=== PATIENT | male | born 1955 | race Caucasian/White ===

== ENCOUNTER 2017-04-16 20:25 | Inpatient (IN) | payer MEDICARE, OTHER ==
[2017-04-16] MEDS ORDERED: IPRATROPIUM/ALBUTEROL 3 ML VIAL NEB ONE ×4 (20:49→23:40)
[2017-04-16] MEDS ORDERED: SODIUM CHLORIDE 0.9% (FLUSH) 10 ML SYG IV PRN (20:59)
--- NOTE | 2017-04-16 21:08 | ED.PDOC ---
History of Present Illness - General Chief Complaint: Respiratory Problem Stated Complaint: increased heart rate, low sats Time Seen by Provider: 04/16/17 20:57 Source: RN/MD, snf records Exam Limitations: other - NON-COMMUNICATIVE AT BASELINE. - History of Present Illness Initial Comments: [facility] TO GET MORE INFORMATION. HE IS A NEW PT THERE SO THEY HAD LIMITED INFORMATION. [facility] INFORMED US HIS SATS WERE DECREASING AND HE HAS INCREASED WOB, THUS THEY CHANGED OUT HIS TRACHEOSTOMY WHICH DIDN'T HELP. THE [facility] NURSE WASN'T SURE WHY HE HAS AN INDWELLING TRACH. UNCERTAIN IF HE IS ON 2L AT BASELINE, BUT [facility] STATES HIS 02 SATS WERE WORSENING FROM BASELINE (HE IS CURRENTLY ON 4L IN ER, SATS 89%). PER [facility], HE IS IN CHRONIC VEGETATIVE/NONCOMMUNICATIVE STATE SINCE A PREVIOUS CODE /CPR; SO THIS IS NOT A CHANGE FROM BASELINE TONIGHT. H/O HTN AND DM PER MED LIST, WELL RESPIRATORY MEDS WITH HIS TRACH. NOTE: FAMILY REQUESTS THAT IF HE NEEDS TO BE TRANSFERRED, THEY PREFER HIM TO GO TO [place] OR [facility] INSTEAD OF [place]. Severity: moderate Activities at Onset: rest Possible Cause: unknown cause Improving Factors: nothing Worsening Factors: nothing Associated Symptoms: fever Respiratory Risk Factors: no cause identified Allergies/Adverse Reactions: Allergies NO KNOWN ALLERGY Allergy (Verified 04/16/17 20:45) Home Medications: Ambulatory Orders Amlodipine Besylate 10 mg PO DAILY 04/16/17 Budesonide (Inhalation) [Budesonide] 0.5 mg IN BID PRN 04/16/17 Collagenase [Santyl] 250 unit EX BID 04/16/17 Dextran 70/Dextrose [Hyskon] 1 jayne BOTH_EYES Q12H 04/16/17 Enoxaparin Sodium [Lovenox] 40 mg SUBCU QD 04/16/17 Famotidine 10 mg PO BID 04/16/17 Insulin Aspart [Novolog] 4 unit SC Q6H 04/16/17 Insulin Detemir [Levemir] 10 unit SUBCU Q12H 04/16/17 Ipratropium/Albuterol [Duoneb] 3 ml INH Q6H PRN 04/16/17 Lactobacillus [Acidophilus] 1 cap GT BID 04/16/17 Levalbuterol HCl [Xopenex] 1.25 mg IN Q6H 04/16/17 Levothyroxine Sodium 100 mcg GT DAILY 04/16/17 Whitehouse-3 Fatty Acids [Whitehouse-3 Fish Oil 1000 mg] 3 cap PO DAILY 04/16/17 Vancomycin HCl [Vancocin HCl] 250 mg GT Q8H 04/16/17 Review of Systems - Review of Systems Unable to Obtain Due To: other - PER NH, IS CHRONICALLY IN A VEGETATIVE STATE AND IS NON-COMMUNICATIVE. Past Medical History (General) - Patient Medical History Hx of COPD: Yes Hx Hypertension: Yes Hx Diabetes: Yes - IDDM Hx Gastroesophageal Reflux: Yes - Vaccination History Hx Tetanus, Diphtheria Vaccination: - unk Hx Influenza Vaccination: - unk Hx Pneumococcal Vaccination: - unk - Social History Hx Tobacco Use: No - Activities of Daily Living Fdc/Assisted Living (if applicable):: [facility] - Female History Patient is a Female of Child Bearing Age (10 -59 yrs old): No Patient : No Family Medical History - Family History Father Family History: Unknown Physical Exam - Physical Exam General Appearance: Obese, Well Nourished Eyes, Ears, Nose, Throat Exam: PERRL/EOMI, normal ENT inspection, TMs normal Neck: non-tender, supple Respiratory: respiratory distress, crackles, rhonchi, expiration, inspiration Cardiovascular/Chest: no edema, no gallop, no JVD, no murmur Peripheral Pulses: radial,right: 1+, radial,left: 1+ Gastrointestinal/Abdominal: normal bowel sounds, non tender, soft Extremity: normal inspection, no pedal edema Neurologic: other - HE IS UNRESPONSIVE TO QUESTIONS AND KEEPS BUE AND BLE IN DECEREBRATE (FLEXED) POSITION. HE OPENS EYES SPONTANEOUSLY BUT DOES NOT FOLLOW WITH EYES. Skin Exam: diaphoresis Lymphatic: no adenopathy Progress - Results/Orders Results/Orders: CXR = PLEURAL EFFUSION (CHF) BNP 279, JUST SLIGHTLY ELEVATED. CHF - UNABLE TO GIVE LASIX DUE TO HYPOTENSION. CBC = WBC 28. NEUTS ELEVATED. UA = UTI (WBC, POS LEUK EST, BACTERIA). PROTEINURIA, MICRO HEMATURIA. D-DIMER 2,950; HYPOTENSION, ACUTE HYPOXIA, THUS ORDERING CTA TO ENSURE NO P.E., THOUGH HE IS ALREADY ON LOVENOX. 23:04 UPDATE: RADIOLOGY INFORMED ME WE ARE UNABLE TO DO CTA TO EVAL FOR P.E. SINCE PT'S BUE ARE CHRONICALLY IN RIGID FLEXED POSITION (UNABLE TO PLACE IV FOR THE DYE), AND THEY INFORMED ME IV IN FOREARM OR IN LEGS DOES NOT PROVIDE SUFFICENT VIEW FOR CTA. P.E. IS LESS LIKELY SINCE HIS 02 SATES INCREASED FROM 87 UP TO 97% IN ER ON SAME Fi02 AND SINCE HE IS ALREADY ON LOVENOX. SEPSIS - POSITIVE SIRS CRITERIA (TACHYCARDIA, ELEV WBC, HYPOXIA) PLUS INFECTIOUS SOURCE OF UTI AND HEALTHCARE-ASSOCIATED PNE (INTERMEDIATE PT), THUS GAVE 1ST DOSE OF MEROPENEM, WHICH COVERS FOR BOTH UTI AND PNE. ACUTE HYPOTENSION - 107/63. UNABLE TO GIVE IVF D/T CHF FLUID OVERLOADED. MAP IS 78. I WILL KEEP AN EYE ON IT AND IF MAP OR BP DROPS, I WILL CONSIDER PRESSORS TO TX SINCE CANNOT GIVE IVF WITH HIS CHF/PLEURAL EFFUSION. 23:00 UPDATE: BP NOW IMPROVED TO 107/87 (map 92) ACUTE HYPOXIA - O2 SATS IMPROVING FROM 87% ON ER ARRIVAL ON 4L, UP TO 97% ON 4L. CMP UNREMARKABLE EXCEPT Na 133. EKG = SINUS TACHY WNL/NEG: LACTIC ACID, CARDIAC ENZ. BCX AND SPUTUM CX PENDING. I SPOKE WITH CARLOS LEHMAN APRN HOSPITALIST, WHO ACCEPTED ADMISSION AND FURTHER CARE OF THE PT. THANK YOU, CARLOS AND [facility]. - EKG/XRAY/CT EKG: Sinus, Tachy, no ST T wave changes Departure - Departure Clinical Impression: Fever, Acute respiratory failure with hypoxia, Sinus tachycardia by electrocardiogram, Pleural effusion due to CHF (congestive heart failure), Neutrophilic leukocytosis, Sepsis, UTI (urinary tract infection), Proteinuria, Microscopic hematuria, Hypotension, Hypoxia, custodial-acquired pneumonia, Hyponatremia, Chronic brain damage Disposition: Admit Patient Condition: Fair Departure Forms: Patient Portal Self Enrollment, ED Discharge - Pt. Copy Referrals: JAYDON THURSTON [Primary Care Provider] - 1-2 Weeks Home Medications: Ambulatory Orders Amlodipine Besylate 10 mg PO DAILY 04/16/17 Budesonide (Inhalation) [Budesonide] 0.5 mg IN BID PRN 04/16/17 Collagenase [Santyl] 250 unit EX BID 04/16/17 Dextran 70/Dextrose [Hyskon] 1 jayne BOTH_EYES Q12H 04/16/17 Enoxaparin Sodium [Lovenox] 40 mg SUBCU QD 04/16/17 Famotidine 10 mg PO BID 04/16/17 Insulin Aspart [Novolog] 4 unit SC Q6H 04/16/17 Insulin Detemir [Levemir] 10 unit SUBCU Q12H 04/16/17 Ipratropium/Albuterol [Duoneb] 3 ml INH Q6H PRN 04/16/17 Lactobacillus [Acidophilus] 1 cap GT BID 04/16/17 Levalbuterol HCl [Xopenex] 1.25 mg IN Q6H 04/16/17 Levothyroxine Sodium 100 mcg GT DAILY 04/16/17 Whitehouse-3 Fatty Acids [Whitehouse-3 Fish Oil 1000 mg] 3 cap PO DAILY 04/16/17 Vancomycin HCl [Vancocin HCl] 250 mg GT Q8H 04/16/17 Decision To Admit - Decistion To Admit Decision to Admit Reason: Admit from ER
--- NOTE | 2017-04-16 21:11 | RAD ---
PROCEDURE: XR CHEST 1 VIEW HISTORY: difficulty breathing, low O2 sats COMPARISON: None TECHNIQUE: Single projection of the chest was done. FINDINGS: There is presence of a tracheostomy. There is small right-sided pleural thickening/pleural effusion and presence of mild asymmetric right-sided vascular congestion, suspicious for underlying changes of mild volume overload The patient is rotated to the right side . There is no pneumothorax The cardiomediastinal silhouette is stable. IMPRESSION: There is small right-sided pleural thickening/pleural effusion and presence of mild asymmetric right-sided vascular congestion, suspicious for underlying changes of mild volume overload Electronically signed by: Octavio Barksdale MD 04/16/2017 9:10 PM CDT Workstation: [id number]
[2017-04-16] MEDS ORDERED: MEROPENEM 1 GM in SODIUM CHL 0.9% 50ML MIN-BAG+ 50 ML IVPB ONE (22:02)
[2017-04-16] MEDS ORDERED: MEROPENEM 1 GM VIAL IVPB ONE (22:31)
[2017-04-16] MEDS ORDERED: SODIUM CHL 0.9% 50ML MIN-BAG+ 50 ML IVPB ONE (22:31)
[2017-04-16] MEDS ORDERED: SODIUM CHLORIDE 0.9% 10 ML VIAL ONE (22:52)
[2017-04-17] MEDS ORDERED: ONDANSETRON INJ 4 MG/2 ML VIAL IV PRN (00:42)
[2017-04-17] MEDS ORDERED: MORPHINE SULFATE INJ 10 MG/ML VIAL IV PRN (00:42)
[2017-04-17] MEDS ORDERED: SODIUM CHLORIDE 0.9% (FLUSH) 10 ML SYG IV PRN (00:42)
[2017-04-17] MEDS ORDERED: SODIUM CHLORIDE 0.9% 1000ML 1,000 ML IVS PRN ×2 (00:57→10:11)
[2017-04-17] MEDS ORDERED: IPRATROPIUM/ALBUTEROL 3 ML VIAL INH SCH (01:00)
[2017-04-17] MEDS ORDERED: IV SET AND CAP CHANGE INJ INJ SCH (01:00)
[2017-04-17] MEDS ORDERED: DEXTROSE 50% 25 GM/50 ML SYG IV PRN (01:07)
[2017-04-17] MEDS ORDERED: GLUCAGON INJ 1 MG VIAL SUBCU PRN (01:07)
[2017-04-17] MEDS ORDERED: DEX 5% W/NACL 0.9% 1000ML 1,000 ML IVS ONE (02:00)
--- NOTE | 2017-04-17 05:40 | RAD ---
EXAM: Single view chest. INDICATION: Pneumonia. COMPARISON: Chest x-ray: 04/16/2017. FINDINGS: There is right basilar airspace opacity with right pleural effusion. The left lung is clear. Heart size is stable. There is no pneumothorax. The tracheostomy tube is in satisfactory position. A left PICC terminates near the left axillary region. IMPRESSION: Right basilar airspace opacity with right pleural effusion Electronically signed by: Karthik High MD 04/17/2017 5:39 AM CDT Workstation: [id number]
[2017-04-17] MEDS: ALBUTEROL SULFATE 2.5 MG/3 ML VIAL NEB PRN (05:50)
[2017-04-17] MEDS ORDERED: INSULIN LISPRO 100 UNITS/ML PEN SUBCU SCH (06:00)
[2017-04-17] MEDS ORDERED: MEROPENEM 1 GM in SODIUM CHL 0.9% 50ML MIN-BAG+ 50 ML IVPB SCH ×2 (06:00→09:00)
[2017-04-17] MEDS ORDERED: NOREPINEPHRINE BITARTRATE 4 MG in DEXTROSE 5% 250ML 250 ML IVPB ONE (06:30)
[2017-04-17] MEDS ORDERED: PANTOPRAZOLE SODIUM IV 40 MG VIAL IV SCH (06:30)
--- NOTE | 2017-04-17 06:32 | RAD ---
EXAM: Single view chest. INDICATION: Respiratory distress. COMPARISON: Chest x-ray: 04/17/2017. FINDINGS: There is a right basilar airspace opacity with right pleural effusion. The left lung is clear. The heart size is stable. There is no pneumothorax. A tracheostomy tube is in place IMPRESSION: Right basilar airspace opacity with right pleural effusion Electronically signed by: Karthik High MD 04/17/2017 6:31 AM CDT Workstation: [id number]
[2017-04-17] MEDS ORDERED: SODIUM CHLORIDE 0.9% 50ML 50 ML ONE (07:48)
[2017-04-17] MEDS ORDERED: VANCOMYCIN HCL 250 MG GT SCH (08:00)
[2017-04-17 08:59] VITALS: O2SAT 100
[2017-04-17] MEDS ORDERED: LEVOTHYROXINE SODIUM 100 MCG GT SCH (09:00)
[2017-04-17] MEDS ORDERED: NON-FORMULARY MEDICATION 1 EA MIS (Lactobacillus [Acidophilus] 1 CAP) GT SCH (09:00)
[2017-04-17] MEDS ORDERED: NON-FORMULARY MEDICATION 1 EA MIS (Amlodipine Besylate [Amlodipine Besylate] 10 MG) PO SCH (09:00)
[2017-04-17] MEDS ORDERED: COLLAGENASE OINT 30 GM TUBE TOP SCH (09:00)
[2017-04-17] MEDS ORDERED: INSULIN LISPRO 100 UNITS/ML PEN SUBCU ONE (09:17)
[2017-04-17 10:53] VITALS: TEMP 97.3
[2017-04-17 10:54] VITALS: BP 111/72
[2017-04-17] MEDS ORDERED: IPRATROPIUM/ALBUTEROL 3 ML VIAL NEB SCH (12:00)
[2017-04-18] MEDS: ALBUTEROL SULFATE 2.5 MG/3 ML VIAL NEB PRN (13:58)
--- NOTE | 2017-05-10 18:12 | SSS ---
SUPERVISING PHYSICIAN: Darshan Rachel M.D. Total critical care time spent on this patient is 2 hours. DISCHARGE DIAGNOSES: 1. Acute on chronic respiratory failure with hypoxia. 2. SARS secondary to a urinary tract infection and possible right lower lobe pneumonia. 3. Urinary tract infection. 4. Right lower lobe pneumonia most likely healthcare acquired. 5. Febrile illness most likely due to urinary tract infection and pneumonia. 6. 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 7. Leukocytosis. 8. Hypotension requiring pressors. 9. Elevated D-dimer. 10. Right pleural effusion. 11. Elevated BNP of 279. 12. Elevated ALT. 13. Elevated creatinine kinase. HISTORY OF PRESENT ILLNESS: This is a 62 year-old male patient who has been living in [facility] for approximately 2 weeks. He is a new patient there and there was not much health information sent with him to the Emergency Room. The prison stated that his sats were dropping into the mid to low 80s and he had increased work of breathing. They changed his tracheostomy tube out, that did not improve his respiratory status. He was sent to the Emergency Room. It is to be noted, he is in a chronic vegetative state and noncommunicative. In the Emergency Room, his initial chest x-ray per radiology interpretation showed a small right sided pleural thickening/pleural effusion and the presence of mild asymptomatic right sided vascular congestion. There was question of underlying changes of mild volume overload. His BNP was slightly elevated at 279. He was febrile on admission with a temperature of 102 and his heart rate went up to 126 to 143. Respiratory rate went up into the mid 30s and oxygen went down to 88%. After suctioning and judicious administration of IV fluids as well as giving him Meropenem, his heart rate dropped down to 110s and his respiratory rate improved to 97%. Respiratory rate was in the mid to low 20s and his blood pressure improved to the 100s to 120s/70s and 80s. He was also found to have a urinary tract infection as well as a questionable right lower lobe pneumonia. His lactic acid was 1.1. WBCs were 28,400, but his vital signs had stabilized and I was called for admission to the hospital. D-dimer was elevated at 2,950. A CTA of the abdomen was unable to be performed due to the patient's contractures, but it was felt that the risks of a pulmonary embolism were low due to him being chronically anticoagulated on Lovenox at the prison. He was admitted shortly after midnight. His home medications were restarted as well as he was continued on Merrem as well as breathing treatments. About 5:45 in the morning I was called to the hospital due to decreasing saturations that dropped into the upper 70s. His respiratory rate increased up to the 40s. When I arrived at the hospital, his systolic blood pressure was in the 70s. He was placed on Levophed and titrated to a systolic blood pressure to be greater than 90. His sats also dropped into the upper 70s and his respiratory rate dropped to 6 to 7 breaths per minute. He was placed on a ventilator. I attempted to get the patient transferred to a higher level of care. Initially I received transfer acceptance from [facility] in [place], but per the patient's sister, she did not want him to be transferred to [place]. She preferred [place] or somewhere in the [facility] area. I called multiple hospitals in the [facility] area. After several hours he was accepted to [facility] in [place]. During the plan for transfer, his oxygen saturations stayed in the upper 90s on the ventilator. His Levophed was titrated down to 1 to 3 mcg per minute and his systolic blood pressure stayed in the 90s to 110s. He also became somewhat more alert and at 10:20 AM he was transferred via EMS to [place]. PAST MEDICAL HISTORY: Limited due to lack of information, but it is known that he has: 1. Chronic obstructive pulmonary disease. 2. Hypertension. 3. Diabetes. 4. Gastroesophageal reflux disease. 5. History of traumatic brain injury. PAST SURGICAL HISTORY: Unknown. OUTPATIENT MEDICATIONS: Per the EMR and awaiting verification. ALLERGIES: NO KNOWN DRUG ALLERGIES. SOCIAL HISTORY: He has been a resident of [facility] for about 2 weeks. He does have a sister that lives in [place], [place]. It is unknown whether he has a past history of tobacco, ETOH or illicit drug use. REVIEW OF SYSTEMS: Unable due to the patient's condition. PHYSICAL EXAMINATION: VITAL SIGNS: Temperature was a high as 102, it is now 97. Pulse rate was as high as 143 and is now 111. Systolic blood pressure was as low as the 70s and is now 114/77. Respiratory rate was as high as 46 and is now in the 16s to 18s. O2 sat prior to being mechanically ventilated were in the upper 70s and are now 100%. GENERAL: This is a 62 year-old male patient who is somewhat obese. HEENT: Normocephalic and atraumatic. Pupils are equal and reactive. NECK: Supple without mass. CHEST: He was somewhat tachypneic at times. He has crackles and rhonchi throughout with some expiratory wheezing, somewhat diminished on the right lower lobe. CARDIOVASCULAR: Tachycardic rate, regular rhythm. ABDOMEN: Soft, nondistended. EXTREMITIES: No cyanosis, clubbing or edema. They are extremely contractured both upper and lower extremities. NEUROLOGIC: He is unresponsive to questions. He opens his eyes spontaneously but does not follow with the eyes. He follows no commands. DISCHARGE PLAN: The patient will be discharged to [facility] in [place] for a higher level of care. He was transferred in stable but critical condition. His medical records that were available went with him. Total critical care time was [address] Rachel was the collaborating physician and available for consultation. #[id number] [facility]
== END 2017-04-17 11:20 | disposition short-term general hospital (02) | DRG 871 ==
LOC: ER 20:25 → OBSVTOIN 04-17 00:01 → MS 04-17 00:01
PROVIDERS: ADMIT Nurse Practitioner Acute Care; ATTEND Nurse Practitioner Acute Care
PROC: 5A1935Z Respiratory Ventilation, Less than 24 Consecutive Hours (ICD-10-PCS; principal; 2017-04-17)
DX: A41.9 Sepsis, unspecified organism (principal); J96.21 Acute and chronic respiratory failure with hypoxia; J18.9 Pneumonia, unspecified organism; N39.0 Urinary tract infection, site not specified; E87.1 Hypo-osmolality and hyponatremia; R40.3 Persistent vegetative state; Y95 Nosocomial condition; I50.9 Heart failure, unspecified; Z93.0 Tracheostomy status; Z79.4 Long term (current) use of insulin; Z79.899 Other long term (current) drug therapy; R79.1 Abnormal coagulation profile; R74.8 Abnormal levels of other serum enzymes; I11.0 Hypertensive heart disease with heart failure; E11.9 Type 2 diabetes mellitus without complications; K21.9 Gastro-esophageal reflux disease without esophagitis; Z87.820 Personal history of traumatic brain injury